=== PATIENT | female | born 1945 | race Caucasian/White ===

== ENCOUNTER → 2022-05-02 | Outpatient (REF) | payer MEDICARE, BC ==
[~2022-05-02] MED LIST: CRAN400C PO; D3 U5000 PO; ESCI10TA16 PO; ESCI5SOL3 PO; K-TA10TA PO; LEVO88TA3 PO; LEXA1TAB PO; LOSA100T5 PO; MAGN500C PO; ONE-1TAB PO; PRES10CA2 PO; VALS160T2 PO; VISI1TAB PO; VITA100093 PO
== END ==
LOC: M PLALAB 15:03
PROVIDERS: ATTEND Nurse Practitioner Family
DX: Z12.4 Encounter for screening for malignant neoplasm of cervix (principal)

== ENCOUNTER → 2025-01-15 | Outpatient (CLI) | payer MEDICARE, BC ==
[~2025-01-15] MED LIST changes: -CRAN400C PO; +CRANBERRY400 MG PO; -K-TA10TA PO; +LEVO100T5 PO; +MULT18TA PO; +NAPR-885 PO; -ONE-1TAB PO; +POTA-164 PO
== END ==
LOC: M WHC 11:06
PROVIDERS: ATTEND Nurse Practitioner Family
DX: Z12.31 Encounter for screening mammogram for malignant neoplasm of breast (principal); R92.323 Mammographic fibroglandular density, bilateral breasts